=== PATIENT | male | born 1985 | race Caucasian/White ===

== ENCOUNTER 2020-05-08 18:39 | Emergency (ER) | payer BC, SELFPAY ==
[2020-05-08 19:02] LABS: Apearance,Urine Cloudy (Clear); Color,Urine Amber (Yellow); PH,Urine 6.5 (5.0-8.5)
[2020-05-08 19:03] VITALS: BP 143/95; PULSE 87; RESP 16; TEMP 36.7; O2SAT 98; BMI 38.7
[2020-05-08 19:03] LABS: Bilirubin,Urine 1+ (Negative); Blood, Urine 4+ (Negative); Glucose,Urine (UA) Negative (Negative); Ketones,Urine Negative (Negative); Protein,Urine 2+ (Negative); Specific Gravity, Urine >= 1.030 (1.005-1.030)
[2020-05-08 19:04] LABS: UTC Leukocyte Esterase,Urine Negative (Negative); UTC Nitrate,Urine Negative (Negative); Urobilinogen,Urine 1 EU/dl (0.2)
--- NOTE | 2020-05-08 19:10 | HMH.EDUTC ---
[facility] [place] Disposition Clinical Impression: Flank pain Disposition: Still a Patient Condition on Discharge: Good Instructions: DI for Acute Abdomen Referrals: Julio Oevrton [Primary Care Provider] - Time of Disposition: 19:22 Medical Decision Making - Garcia Inquiry Pt receiving controlled substance: No Garcia was queried for this patient: No Vital Signs: 05/08/20 19:03 Temperature 98.1 F Temperature Source Oral Pulse Rate [Right] 87 Respiratory Rate 16 Blood Pressure [Right Arm] 143/95 H Blood Pressure Mean [Right Arm] 111 Blood Pressure Source [Right Arm] Automatic Cuff Blood Pressure Position [Right Arm] Sitting 02 Sat by Pulse Oximetry 98 Oxygen Delivery Method Room Air - Lab Data Lab Results 05/08/20 19:01: Urine Color [place], Urine Appearance Cloudy, Urine pH 6.5, Ur Specific [place] >= 1.030, Urine Protein 2+, Urine Glucose (UA) Negative, Urine Ketones Negative, Urine Blood 4+, Urine Nitrate Negative, Urine Bilirubin 1+ A, Urine Urobilinogen 1, Ur Leukocyte Esterase Negative Medical Decision Narrative: Patient uncomfortable moving around on exam table Reports pain in right flank area that radiates around his right side into his abdomen and groin area States that pain has continued to get worse over the last hour, denies history of kidney stones Reports pain sudden onset with worsening Patient appears uncomfortable and reports tenderness in right side/abdomen when palpated, Urine collected and blood noted, Discussed with patient and recommended transfer to ED for further work up and evaluation and patient agreed, Called ED spoke with Jono and patient was transferred to Room 10 in ED for further treatment and evaluation [facility] [place] HPI - General Chief complaint: Abdominal Pain Stated complaint: R side and lower back Time Seen by Provider: 05/08/20 19:10 Mode of Arrival: Ambulatory Limitations: No Limitations Description of Symptoms (Recalled from Triage Doc. by RN): PT c/o right side pain that started approx hour ago. Advises the pain goes around from back and to the front HEENT Symptoms (Recalled from RN notes): No Resp Symptoms (Recalled from RN notes): No Skin Symptoms (Recalled from RN notes): No MS Symptoms (Recalled from RN notes): No Functional Status (Recalled from RN notes): na - History of Present Illness Provider Complaint: Patient states that he was at home and eat supper and started having sharp achy like pain in his right side that is radiating around his right side into his waistline/groin area States that he thought it would get better but has since got worse and more uncomfortable States that certain movements seem to help and some make the pain worse States that now pain is a 8/10 - Worker's Comp Is this a Worker's Comp case?: No [facility] History - Hepatitis A Screen Drug use history?: No High risk sexual behaviors?: No History of sexually transmitted infection?: No Currently employed?: No Childcare worker?: No Do you have indoor plumbing?: Yes Do you have electricity?: Yes Attestation statement:: This patient has been screened for Hepatitis A risk factors. I have reviewed the patient's past medical history: Yes ROS Obtained: Yes All systems reviewed & no additional complaints, Yes Systems reviewed as appropriate & no additional complaints - Constitutional Constitutional: Reports system reviewed and no additional complaints, except as docu - Eyes Eyes: Reports system reviewed and no additional complaints, except as docu - ENT Ears, Nose, Mouth, and Throat: Reports system reviewed and no additional complaints, except as docu - Cardiovascular Cardiovascular: Reports system reviewed and no additional complaints, except as docu - Respiratory Respiratory: Yes system reviewed and no additional complaints, except as docu - Gastrointestinal Comments: Pain in right flank area radiating around abdomen into right groin area - Genitourinary Male Genitourinary: Reports flank
--- NOTE | 2020-05-08 19:12 | CT_ITS ---
PROCEDURE: CT ABDOMEN PELVIS W CON CLINICAL INDICATION: abd pain Right flank pain and hematuria COMPARISON: No exams were available for comparison TECHNIQUE: IV Contrast: 75ML OPTIRAY 350 Oral Contrast None Axial images obtained with sagittal and coronal reformats. All CT scans at the facility use one or more dose reduction, viz: automated exposure control, ma/kV adjustment per patient size (including targeted exams where dose is matched to indication, i.e. head), or iterative reconstruction technique. FINDINGS: LOWER THORAX: No acute finding ABDOMEN & PELVIS: The stomach is filled with particular matter. The liver, gallbladder, adrenal glands, spleen, and pancreas have an unremarkable appearance. There is mild right hydronephrosis and hydroureter secondary to a 4 mm stone in the proximal right ureter at the L3 level. No evidence of appendicitis intestinal obstruction free air or diverticulitis. No acute bony findings. IMPRESSION: 4 mm stone in the proximal right ureter with mild right-sided obstructive uropathy. Dictated by: Jeff Kong MD 05/09/2020 05:16 Jeff Kong MD in [place] 05/09/2020 05:16
[2020-05-08 19:54] LABS: Basophils # 0.1 K/mm3 (0-0.2); Basophils % 0.5 % (0.1-2.0); Eosinophils # 0.2 K/mm3 (0.0-0.4); Eosinophils % 2.1 % (0.1-12.0); Hematocrit 43.7 % (42.0-52.0); Lymphocytes # 2.4 K/mm3 (0.7-4.5); Lymphocytes % 23.8 % (10-50); Mean Corpuscular HGB Conc 36.7 g/dL (31.8-35.4); Mean Corpuscular Hemoglobin 33.7 pg (27.0-31.2); Mean Corpuscular Volume 91.8 fl (80-94); Mean Platelet Volume 7.9 fl (7.4-10.4); Monocytes # 0.7 K/mm3 (0.1-1.0); Monocytes % 6.8 % (1.7-9.3); Neutrophils # 6.7 K/mm3 (1.8-7.8); Neutrophils % 66.8 % (37.0-80.0); Platelet Count 257 K/mm3 (142-424); Red Blood Count 4.76 M/mm3 (4.60-6.20); Red Cell Distribution Width 12.4 % (11.5-17.5)
[2020-05-08 19:59] LABS: Alanine Aminotransferase 27 U/L (12-78); Albumin Level 4.2 g/dl (3.5-5.0); Albumin/Globulin Ratio 1.2 (1.1-1.8); Alkaline Phosphatase 84 U/L (38-126); Amylase 63 U/L (30-110); Anion Gap 13.7 mEq/L (5-15); Aspartate Amino Transferase 35 U/L (17-59); Bilirubin,Total 0.6 mg/dl (0.2-1.3); Blood Urea Nitrogen 18 mg/dl (9-20); Calcium 9.3 mg/dl (8.4-10.2); Carbon Dioxide 30 mmol/L (22.0-30.0); Chloride 102 mmol/L (98-107); Creatinine Clearance Estimated 184 mL/min (50-200); Estimated Glomerular Filt Rate 87 ml/min (>60); GFR (African American) 105 ML/MIN (>60); Globulin 3.4 g/dL (1.3-3.2); Glucose 118 mg/dl (74-100); Lipase 35 U/L (23-300); Potassium 3.7 mmoL/L (3.5-5.1); Sodium 142 mmol/L (136-145); Total Protein,Serum 7.6 g/dl (6.3-8.2)
--- NOTE | 2020-05-08 20:03 | HMH.EDGENADL ---
ED Disposition Clinical Impression: Flank pain Disposition: Home, Self-Care Condition on Discharge: Good Instructions: DI for Acute Abdomen Additional Instructions: follow up w/ urology, use a strainer when you urinate. Prescriptions: Ketorolac Tromethamine [Toradol 10mg tablet] 10 mg PO Q6H 5 Days #20 tab Prescription Printed Referrals: Julio Overton [Primary Care Provider] - - Critical Care Critical Care Time: No Attestation: On 05/08/20, the high probability of a clinically significant, sudden or life threatening deterioration of the following system(s) required my full and direct attention, intervention and personal management. The time I documented below is in addition to time spent performing reported procedures but includes the following listed in this critical care notation. Medical Decision Making - Medical Records Medical records reviewed: Yes: I reviewed the patient's medical records. - Garcia Inquiry Pt receiving controlled substance: No Vital Signs: 05/08/20 19:03 05/08/20 20:26 Temperature 98.1 F Temperature Source Oral Pulse Rate [Right] 87 78 Respiratory Rate 16 18 Blood Pressure [Right Arm] 143/95 H 141/84 H Blood Pressure Mean [Right Arm] 111 103 Blood Pressure Source [Right Arm] Automatic Cuff Blood Pressure Position [Right Arm] Sitting 02 Sat by Pulse Oximetry 98 96 Oxygen Delivery Method Room Air Room Air - Lab Data Lab Results 05/08/20 19:01: Urine Color [place], Urine Appearance Cloudy, Urine pH 6.5, Ur Specific [place] >= 1.030, Urine Protein 2+, Urine Glucose (UA) Negative, Urine Ketones Negative, Urine Blood 4+, Urine Nitrate Negative, Urine Bilirubin 1+ A, Urine Urobilinogen 1, Ur Leukocyte Esterase Negative 05/08/20 19:25: WBC 10.0, RBC 4.76, Hgb 16.0, Hct 43.7, MCV 91.8, MCH 33.7 H, MCHC 36.7 H, RDW 12.4, Plt Count 257, MPV 7.9, Neut % (Auto) 66.8, Lymph % (Auto) 23.8, [place] % (Auto) 6.8, Eos % (Auto) 2.1, Baso % (Auto) 0.5, Neut # (Auto) 6.7, Lymph # (Auto) 2.4, [place] # (Auto) 0.7, Eos # (Auto) 0.2, Baso # (Auto) 0.1 05/08/20 19:25: Sodium 142, Potassium 3.7, Chloride 102, Carbon Dioxide 30, Anion Gap 13.7, BUN 18, Creatinine 1.00, Estimated Creat Clear 184, Estimated GFR 87, Est GFR ( Amer) 105, Glucose 118 H, Calcium 9.3, Total Bilirubin 0.6, AST 35, ALT 27, Alkaline Phosphatase 84, Total Protein 7.6, Albumin 4.2, Globulin 3.4 H, Albumin/Globulin Ratio 1.2, Amylase 63, Lipase 35 Result diagrams: 05/08/20 19:25 05/08/20 19:25 Orders (Tests/Meds): ED MEDICATIONS Generic Name Dose Route Start Last Admin Trade Name Freq PRN Reason Stop Dose Admin Sodium Chloride 1,000 mls @ 999 mls/hr 05/08/20 19:15 05/08/20 19:35 Sod Chlor 0.9% 1000ml Bag IV 05/08/20 20:15 999 mls/hr .Q1H1M STU Administration Discontinued Medications Generic Name Dose Route Start Last Admin Trade Name Freq PRN Reason Stop Dose Admin Ioversol 75 ml 05/08/20 19:52 05/08/20 19:52 Rad-Optiray 350 100ml Vial IV 05/08/20 19:53 75 ml ONCE ONE Administration Protocol Ketorolac Tromethamine 30 mg 05/08/20 19:13 05/08/20 19:35 Toradol 30mg/Ml Vial IV 05/08/20 19:14 30 mg ONCE ONE Administration Ondansetron HCl 4 mg 05/08/20 19:30 05/08/20 19:35 Zofran 4mg/2ml Vial IV 05/08/20 19:31 4 mg ONCE ONE Administration Sodium Chloride 10 ml 05/08/20 19:52 05/08/20 19:52 Rad-Saline Flush 10ml Syringe IV 05/08/20 19:53 10 ml ONCE ONE Administration ORDERS Category Date Time Status CT abdomen pelvis w con Stat Cat Scan 05/08/20 19:12 Taken Medical Decision Narrative: In summary patient presents for flank pain. Patient was seen in urgent care, transferred here for further work-up. On examination his right flank pain, radiating into his groin. Patient's urinalysis obtained at urgent care, demonstrating blood in urine, 4+. Due to this concern for nephrolithiasis is high. Patient had CT scan ordered on repeat assessment, pat
[2020-05-08 20:26] VITALS: BP 141/84; PULSE 78; RESP 18; O2SAT 96
[2020-05-08 20:51] VITALS: BP 138/78; PULSE 76; RESP 14; TEMP 36.7; O2SAT 99
== END 2020-05-08 20:53 | disposition home or self-care (01) ==
LOC: UTC 18:49 → ER 19:14
PROVIDERS: Nurse Practitioner; Emergency Provider Emergency Medicine; PCP Family Medicine
DX: R10.31 Right lower quadrant pain (principal); R10.11 Right upper quadrant pain
CPT/HCPCS: 74177; 80053; 81003; 82150; 83690; 85025; 96365; 96375; 99283; J2405; Q9967

== ENCOUNTER 2021-05-01 15:53 | Emergency (ER) | payer BC, SELFPAY ==
[2021-05-01 15:54] VITALS: BP 142/90; PULSE 90; RESP 18; TEMP 36.9; O2SAT 96; BMI 46.5
--- NOTE | 2021-05-01 16:51 | HMH.EDUTC ---
[facility] [place] Disposition Clinical Impression: Viral syndrome, Exposure to COVID-19 virus Disposition: Home, Self-Care Condition on Discharge: Good Instructions: DI for Viral Syndrome, Preventing the Spread of Coronavirus Discharge Instructions Additional Instructions: Drink plenty of fluids. Take tylenol for pain or fever. Return if you begin to have difficulty breathing. Follow up with your regular doctor. GO TO THE ER FOR ANY WORSENING SYMPTOMS Quarantine until you know the results of your covid-19 test. If it is positive, the health department should call you and give you further instructions about your length of Quarantine and other thing. Prescriptions: Brompheniramine/Pseudoephed/Dm [Bromfed Dm Cough Syrup] 5 ml PO Q6HP PRN #240 syrup PRN Reason: Cough Transmission Status: Received by [id number] Ibuprofen [Ibuprofen 800mg Tablet] 800 mg PO Q8HP PRN #30 tab PRN Reason: Moderate Pain Transmission Status: Received by [id number] Ondansetron [Zofran 4mg ODT] 4 mg PO Q8HP PRN #20 tab.rapdis PRN Reason: Nausea Transmission Status: Received by [id number] Referrals: Julio Overton [Primary Care Provider] - Forms: Work/School Release Time of Disposition: 17:02 Medical Decision Making - Medical Records Medical records reviewed: No: I reviewed the patient's medical records. - Garcia Inquiry Pt receiving controlled substance: No Vital Signs: 05/01/21 15:54 05/01/21 17:01 Temperature 98.4 F 98.4 F Temperature Source Oral Pulse Rate 90 Pulse Rate [Right] 90 Respiratory Rate 18 18 Blood Pressure 142/90 H Blood Pressure [Right Arm] 142/90 H Blood Pressure Mean [Right Arm] 107 02 Sat by Pulse Oximetry 96 - Lab Data Lab results reviewed: Yes: I reviewed the patient's lab results. Orders (Tests/Meds): ORDERS Category Date Time Status Covid-19 Nasal PCR ([facility]) Routine Lab 05/01/21 16:09 Received [facility] [place] HPI - General Stated complaint: covid test. FIORE [place] throat Time Seen by Provider: 05/01/21 16:51 Description of Symptoms (Recalled from Triage Doc. by RN): pt c/o sore throat and FIORE request Covid test HEENT Symptoms (Recalled from RN notes): Yes Resp Symptoms (Recalled from RN notes): Yes Skin Symptoms (Recalled from RN notes): No MS Symptoms (Recalled from RN notes): No Functional Status (Recalled from RN notes): na - History of Present Illness Provider Complaint: He c/o sore throat and head ache for the past 2 days. - Related Data Previous Rx's Medication Instructions Recorded Ketorolac Tromethamine [Toradol 10 mg PO Q6H 5 Days #20 tab 05/08/20 10mg tablet] Brompheniramine/Pseudoephed/Dm 5 ml PO Q6HP PRN #240 syrup 05/01/21 [Bromfed Dm Cough Syrup] Ibuprofen [Ibuprofen 800mg 800 mg PO Q8HP PRN #30 tab 05/01/21 Tablet] Ondansetron [Zofran 4mg ODT] 4 mg PO Q8HP PRN #20 tab.rapdis 05/01/21 Allergies Allergy/AdvReac Type Severity Reaction Status Date / Time No Known Allergies Allergy Verified 05/08/20 19:10 - Worker's Comp Is this a Worker's Comp case?: No [facility] History - Hepatitis A Screen Drug use history?: No High risk sexual behaviors?: No History of sexually transmitted infection?: No Currently employed?: No Childcare worker?: No Do you have indoor plumbing?: Yes Do you have electricity?: Yes Attestation statement:: This patient has been screened for Hepatitis A risk factors. I have reviewed the patient's past medical history: Yes ROS Obtained: Yes All systems reviewed & no additional complaints - Constitutional Constitutional: Reports chills, Denies fever(s), Reports poor appetite, Reports malaise - Eyes Eyes: Denies eye discharge - ENT Ears, Nose, Mouth, and Throat: Reports as per HPI - Cardiovascular Cardiovascular: Reports system reviewed and no additional complaints, except as docu, Denies chest pain - Respiratory Respiratory: Denies chest congestion, Reports coug
[2021-05-01 17:01] VITALS: BP 142/90; PULSE 90; RESP 18; TEMP 36.9; O2SAT 96
== END 2021-05-01 17:08 | disposition home or self-care (01) ==
PROVIDERS: Emergency Provider Nurse Practitioner Family; PCP Family Medicine
DX: B34.9 Viral infection, unspecified (principal); Z20.822 Contact with and (suspected) exposure to COVID-19
CPT/HCPCS: 99202; G0463; U0003

== ENCOUNTER 2023-08-30 11:57 | Emergency (ER) | payer BC, SELFPAY ==
[2023-08-30] VITALS (10 sets, daily range): BP systolic 132–153; BP diastolic 95–109; PULSE 91–109; RESP 18–20; TEMP 37; O2SAT 91–97; BMI 43.0
--- NOTE | 2023-08-30 12:25 | CT_ITS ---
FINAL REPORT TECHNIQUE: After the administration of intravenous contrast, axial images were obtained through the abdomen and pelvis by computed tomography. This study was performed with technique to keep radiation doses as low as reasonably achievable, (ALARA). Individualized dose reduction techniques using automated exposure control or adjustment of the MA and/or KV according to the patient's size were employed. CLINICAL HISTORY: bleeding from umbilicus, concern for fistula COMPARISON: 05/08/2020 FINDINGS: Abdomen: The lung bases are clear. The liver is moderately fatty infiltrated. Gallbladder is present. The spleen is unremarkable. The adrenals are normal. The pancreas is unremarkable. The kidneys enhance appropriately. Previously seen obstructing right renal stone is no longer identified. The aorta is normal in caliber. There is no free fluid or adenopathy. There is a new, fat-containing umbilical hernia. Pelvis: The appendix is not identified. The urinary bladder is incompletely distended. There is no free fluid or adenopathy. IMPRESSION: New, fat-containing umbilical hernia. Reviewed, Interpreted and Dictated by Vincent Ayers MD Transcribed by Susana Gale Authenticated and [facility]
[2023-08-30 13:43] LABS: Basophils % 0.3 % (0.1-2.0); Eosinophils # 0.2 K/mm3 (0.0-0.4); Hematocrit 47.1 % (42.0-52.0); Hemoglobin 16.8 g/dL (14.1-18.0); Lymphocytes # 2.7 K/mm3 (0.7-4.5); Lymphocytes % 28.1 % (10-50); Mean Corpuscular HGB Conc 35.6 g/dL (31.8-35.4); Mean Corpuscular Volume 89.9 fl (80-94); Mean Platelet Volume 7.2 fl (7.4-10.4); Monocytes # 0.6 K/mm3 (0.1-1.0); Monocytes % 6.1 % (1.7-9.3); Neutrophils % 63.5 % (37.0-80.0); Platelet Count 278 K/mm3 (142-424); Red Blood Count 5.24 M/mm3 (4.60-6.20); Red Cell Distribution Width 12.7 % (11.5-17.5); White Blood Count 9.4 K/mm3 (4.8-10.8)
--- NOTE | 2023-08-30 13:45 | HMH.EDGENADL ---
Discharge Plan Disposition Patient Disposition: Home, Self-Care Condition: Good Prescriptions Prescriptions: No Action No Known Home Medications Referrals Follow up/Referrals: Lane Goode MD [Staff Physician] - See instructions Julio Overton [Primary Care Provider] - See instructions Activity Restrictions/Add. Instructions Additional Instructions/Restrictions: You were evaluated in the emergency department today. At this time, you have a small fat-containing umbilical hernia. Please keep your bellybutton clean and dry. Keep a clean dressing on the area. Follow-up outpatient with Dr. Goode in general surgery clinic. Contact their clinic to make an appointment. Monitor for any signs of infection, such as redness, warmth, pus draining from the area, or other concerns. Return to the emergency department should you develop any of these issues or any worsening bleeding, inability to tolerate oral intake, or inability to have a bowel movement. Clinical Impressions Clinical Impression: Umbilical hernia Qualifiers: Obstruction and gangrene presence: without obstruction or gangrene Qualified Code(s): K42.9 - Umbilical hernia without obstruction or gangrene Stand Alone Forms Stand Alone Forms: Work/School Release Instructions Patient Instructions: DI for Ventral Hernia Discharge ED Provider: Som Beckman General Adult HPI General Chief complaint: Skin/Abscess/Foreign Body Stated complaint: bleeding through belly button Time Seen by Provider: 08/30/23 12:02 Mode of Arrival: Ambulatory Source of Information: Patient Limitations: No Limitations Description of Symptoms (Recalled from ER Triage Doc. by RN): PT REPORTS BLEEDING FROM HIS BELLY BUTTON THAT STARTED YESTERDAY, STATES IT WAS SCANT YESTERDAY AND TODAY IT JUST STARTED POURING BLOOD SOAKING HIS SHIRT, BLEEDING IS CONTROLLED AT THIS TIME, PT STATES HE NOTICED SOME BULGING 3-4 WEEKS AGO AND THINKS HE MAY HAVE A HERNIA History of Present Illness HPI narrative: This patient is a 38-year-old male with a history of obesity presenting to the emergency department for evaluation with concern for bleeding from his bellybutton. Patient reports that he first noticed that he thought he had an umbilical hernia approximately 3 weeks ago. He states it typically is below but is very deep, however he notes it was bulging outward over the last several weeks. He also had pain there. He did not think much of it, but then yesterday he started having a small amount of blood coming from his bellybutton. He tried to clean it, as he thought maybe was infected, however today it has been bleeding much more. He also notes that it seems like his bellybutton is more shallow and is protruding more. He denies any other concerns or complaints, such as fevers, chills, nausea, vomiting, changes in oral intake, changes bowel movements, constipation, or other concerns. He denies any prior abdominal surgeries. Related Data Home Medications Medication Instructions Recorded Confirmed No Known Home Medications 08/30/23 08/30/23 Allergies Allergy/AdvReac Type Severity Reaction Status Date / Time No Known Allergies Allergy Verified 08/30/23 12:18 [facility] Disclaimer: The information contained in this section may have been updated after the patient was seen, as this information can be updated by other users. Social History Smoking Status: Current every day smoker alcohol intake: current current occupational status: employed Travel in the last 8 weeks: None ROS Obtained: Yes All systems reviewed & no additional complaints except as documented Physical Exam General General appearance: alert, in no apparent distress and obese Head Head exam: atraumatic and normocephalic Eye Eye exam: Present normal appearance, PERRL and EOMI ENT ENT exam: Present normal exam, normal oropharynx, mucous membranes moist and nor
[2023-08-30 13:53] LABS: Chloride 105 mmol/L (98-107); Potassium 4.1 mmoL/L (3.5-5.1); Sodium 141 mmol/L (136-145)
[2023-08-30 13:55] LABS: Blood Urea Nitrogen 15 mg/dl (9-20); Creatinine Clearance Estimated 117 mL/min (50-200); Estimated Glomerular Filt Rate 95 ml/min (>60); GFR (African American) 116 ML/MIN (>60)
[2023-08-30 13:56] LABS: Alanine Aminotransferase 42 U/L (12-78); Albumin Level 4.4 g/dl (3.5-5.0); Albumin/Globulin Ratio 1.2 (1.1-1.8); Alkaline Phosphatase 94 U/L (38-126); Anion Gap 13.1 mEq/L (5-15); Aspartate Amino Transferase 39 U/L (17-59); Bilirubin,Total 0.5 mg/dl (0.2-1.3); Calcium 8.7 mg/dl (8.4-10.2); Carbon Dioxide 27 mmol/L (22.0-30.0); Globulin 3.6 g/dL (1.3-3.2); Glucose 95 mg/dl (74-100)
[2023-08-30 14:38] LABS: Lactic Acid 0.9 mmol/L (0.7-2.1)
--- NOTE | 2023-08-30 15:33 | PC.NURSE ---
paged surgery again
--- NOTE | 2023-08-30 15:34 | PC.NURSE ---
Dr. Ritter speaking with Dr. Goode
== END 2023-08-30 16:02 | disposition home or self-care (01) ==
PROVIDERS: Emergency Medicine; Emergency Provider Emergency Medicine; PCP Family Medicine
DX: K42.9 Umbilical hernia without obstruction or gangrene (principal); F17.200 Nicotine dependence, unspecified, uncomplicated
CPT/HCPCS: 74177; 80053; 83605; 85025; 99285

== ENCOUNTER 2023-09-16 13:59 | Outpatient (CLI) | payer BC, SELFPAY ==
[2023-09-16 14:45] LABS: Basophils # 0.1 K/mm3 (0-0.2); Basophils % 0.6 % (0.1-2.0); Eosinophils # 0.1 K/mm3 (0.0-0.4); Eosinophils % 1.4 % (0.1-12.0); Hematocrit 46.4 % (42.0-52.0); Hemoglobin 15.8 g/dL (14.1-18.0); Lymphocytes # 3.1 K/mm3 (0.7-4.5); Lymphocytes % 32.2 % (10-50); Mean Corpuscular Hemoglobin 31.5 pg (27.0-31.2); Mean Corpuscular Volume 92.8 fl (80-94); Mean Platelet Volume 8.2 fl (7.4-10.4); Monocytes # 0.7 K/mm3 (0.1-1.0); Monocytes % 7.7 % (1.7-9.3); Neutrophils # 5.6 K/mm3 (1.8-7.8); Platelet Count 268 K/mm3 (142-424); White Blood Count 9.6 K/mm3 (4.8-10.8)
[2023-09-16 15:05] LABS: Chloride 105 mmol/L (98-107); Potassium 4.3 mmoL/L (3.5-5.1); Sodium 141 mmol/L (136-145)
[2023-09-16 15:08] LABS: Anion Gap 15.3 mEq/L (5-15); Blood Urea Nitrogen 20 mg/dl (9-20); Calcium 8.6 mg/dl (8.4-10.2); Carbon Dioxide 25 mmol/L (22.0-30.0); Estimated Glomerular Filt Rate 109 ml/min (>60); GFR (African American) 132 ML/MIN (>60); Glucose 84 mg/dl (74-100)
== END 2023-09-16 23:59 ==
LOC: LAB 14:00
PROVIDERS: Visit Provider Surgery
DX: K42.9 Umbilical hernia without obstruction or gangrene (principal)
CPT/HCPCS: 80048; 85025

== ENCOUNTER 2023-10-11 06:01 | Day surgery (SDC) | payer BC, SELFPAY ==
[2023-10-05 10:23] VITALS: BMI 43.0
--- NOTE | 2023-10-08 10:08 | SUR.PREOP ---
Verified w/ pt that he is able to come in at 0600, states he can. Provided pt w/ info on arrival time and schedule change.
[2023-10-11] VITALS (15 sets, daily range): BP systolic 94–149; BP diastolic 51–112; PULSE 41–94; RESP 12–18; TEMP 36.3–36.7; O2SAT 93–99
[2023-10-11] MEDS: LACTATED RINGERS 1000ML 1,000 ML 25 ML IV (06:19)
--- NOTE | 2023-10-11 06:34 | ECG_ITS ---
APPROVED REPORT Exam: Resting ECG HR:87 bpm ECG Measurements Heart Rate 87 AXES OR 163 P 52 QRSd 109 QRS 46 QT 358 T -3 QTc 403 Conclusion SINUS RHYTHM Isolated Q-wave in III ABNORMAL ECG UNCONFIRMED REPORT Electronically signed by : Connor Judd MD 10/12/2023 16:42:56
[2023-10-11] MEDS: CEFAZOLIN SODIUM 2 GM in 0.9 % SODIUM CHLORIDE 100 ML IV (07:35)
[2023-10-11] MEDS: ROPIVACAINE 0.5% 30ML VIAL 150 MG (07:45)
[2023-10-11] MEDS: LIDOCAINE 1% 10ML MDV 10 ML (07:54)
--- NOTE | 2023-10-11 08:14 | P.PNANES_ITS ---
[facility] Disclaimer: The information contained in this section may have been updated after the patient was seen, as this information can be updated by other users. Medical History No significant past medical history Surgical History No significant past surgical history Family History Other Family history of diabetes mellitus type II Family history of hypertension Social History Smoking Status: Current every day smoker alcohol intake: current substance use type: denies use current occupational status: employed Travel in the last 8 weeks: None [facility] Anesthesia Checklist Patient Identification Patient Identification: Verbal (Name & ) Structural Data Admitted From: Home Planned Operative Procedure/s: hernia repair Consent for Planned Operative Procedure(s) Verified: Yes NPO Status Verified Time NPO: 00:00 Additional verifications Anesthesia Reactions: No Hx Blood Transfusions: No Blood Transfusion Reaction: No Airway Assessment Mallampati Score:: Class II C-Spine Mobility Assessed: Yes TMJ Mobility Assessed: Yes Dentition: Good Dentition Neurological Assessment Level of Consciousness: Awake, Alert and Appropriate Anesthesia Plan Anesthesia Risk discussed: Yes Anesthesia Plan: Verified ASA Class: II Anesthesia Type: General
--- NOTE | 2023-10-11 09:31 | EXP.OP.NOTE ---
Date of procedure: 10/11/23 Pre-op Diagnosis:: Umbilical hernia Post-op Diagnosis:: Same Procedure performed:: Laparoscopically directed open umbilical hernia repair with placement of large size Bard Ventralex mesh (diagnostic laparoscopy with open umbilical hernia repair) Surgeon:: Lane Goode MD Anesthesia: AISLINN Estimated blood loss (mL): 15 Clinical Note:: Patient is a 38-year-old male who presents for repair of his umbilical hernia. He has a BMI of 46. I had seen the patient in consultation after he presented to the emergency department on 09/02/2023. He recently had noticed more prominence and protrusion deep within his umbilical area without pain. On 08/29/2023 he had developed some bleeding from the umbilical area which was initially scant but then the following day he had blood staining his shirt. In the emergency department he underwent CT scan of the abdomen and pelvis which reveals new, fat-containing umbilical hernia. He was seen as a surgical consultation and inspection of the umbilical area revealed deep in the umbilicus mildly protruding reactive reddish skin with excoriation centrally consistent with hernia with excoriated skin resulting in bleeding. I reviewed his CT scan and he was found to have a 1 point centimeter fascial defect with prominent hernia sac likely containing omentum which was causing some excoriation and erosion of the skin with bleeding. I informed him that there is no surgical emergency but recommended local wound care using topical antibiotic ointment and gauze. He followed up in the office at this time stating that the bleeding has resolved. The options were discussed with the patient. Given his clinical scenario it was felt that he would best be served with laparoscopically directed open repair. Operative findings:: Patient had a rather small defect measuring just over 1 cm with a prominent hernia sac and significant mount of chronically incarcerated omentum. Hernia sac was extremely densely adherent to the umbilical subdermis and there was essentially no plane between the 2 tissues creating almost a fistula between the umbilical skin and hernia sac. Operative note:: Patient was taken to the operating room. He was positioned in supine position. Anesthesia was induced via endotracheal tube. Abdomen was prepped and draped in the standard surgical fashion. 5 mm incision was made the left subcostal region and an optical trocar was carefully inserted into the peritoneal cavity. CO2 pneumoperitoneum was achieved to 15 mmHg. Surveillance was carried out and there appeared to be a relatively small hernia with omentum. 5 mm trocar was inserted in the left lower abdomen. With traction placed on the herniated omentum it was carefully and slowly reduced with use of abdominal pressure in the umbilical area as well. Herniated omentum appeared to be chronically incarcerated but not strangulated. It was reduced into the peritoneal cavity. Given the prominence of hernia sac despite the small defect plan was made for open placement of Ventralex mesh. Subumbilical skin incision was made. Dissection was carried down through subcutaneous tissues. Hernia sac was encountered. Very prolonged meticulous dissection was carried out in an attempt to dissect the hernia sac free from the umbilical subdermis. There appeared to be no clear plane between the hernia sac and umbilical subdermis. There was unavoidable small laceration of the full-thickness of the umbilical skin deep within the umbilicus. Ultimately hernia sac was able to be dissected free and extraneous peritoneum tissue was excised down to the fascia and sent as hernia sac. Large sized Bard Ventralex mesh was inserted through the defect. Briefly laparoscopic CO2 pneumoperitoneum was reestablished to ensure that the mesh was in a good position overlying the defect. Pneumoperitoneum was evacuated once again. The tails of the mesh were sutured superiorly and inferiorly to the fascia with 2-0 Prolene sutures. The Prolene tails were then cut flush with the fascia. The umbilical skin defect was closed with a 4-0 plain gut. Local anesthetic was infiltrated. Umbilical subdermis was closed with several interrupted 2-0 Vicryl. CO2 pneumoperitoneum was then reestablished. Mesh appeared to be in good position. It was secured in its periphery using the absorbable OPTi fix device. CO2 pneumoperitoneum was then reevacuated. Skin incisions were closed with 4-0 Monocryl in a subcuticular fashion. Antibiotic ointment was placed within the umbilicus. Dermabond and clean dry sterile dressings were applied. Condition: stable Disposition: PACU Complications:: None immediately apparent
--- NOTE | 2023-10-11 09:46 | P.PNANES_ITS ---
[facility] Anesthesia Record Part I Anesthesia Record I Intake, IV Amount: 900 Hydration: Adequate Estimated blood loss (mL): 25 Urine output (mL): 0 Blood Products used (#): none Blood Pressure: 135/98 SaO2: 94 Pulse Rate: 93 Airway Patency: Patent Respiratory Rate: 18 Temperature: 97.9 F Patient is:: Awake (Talking) and Stable Stable to PACU at:: 09:44
--- NOTE | 2023-10-11 10:55 | SUR.PREOP ---
1030- educating patient and . Patient stated he didn't feel right. Said maybe nauseous, HR dropping, flushed, clammy, lips bluish. BP would not take, positioned patient in supine, pt lethargic. 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 Stated he felt better. Color has improved. 1100- 105/63, 82HR, SAT 94% RA- DECK ENGINE OPERATOR instructed to keep pt a little longer. Tash RN, Carito RN, Thiago RN at BS
--- NOTE | 2023-10-12 07:26 | EXP.ANES.II ---
[facility] Anesthesia Record Part II Anesthesia Record Part II Discharge Time: 10:09 Destination: Surgical Day Care (OP Surgery) PACU nurse assessment reviewed?: Yes Patient Condition:: Good Anesthesia Complications:: None Swallowing reflex intact?: Yes Airway Patency: Patent Cyanosis?: No Blood Pressure: 132/66 SaO2: 96 Respiratory Rate: 16 Pulse Rate: 89 Temperature: 97.3 F Mental Status: Alert & Oriented Pain level:: 0 Nausea and/or vomitting:: None Intake, IV Amount: 0 Hydration: Adequate
[2023-10-12 07:27] VITALS: BP 132/66; PULSE 89; RESP 16; TEMP 36.3; O2SAT 96
== END 2023-10-11 11:30 | disposition home or self-care (01) ==
PROVIDERS: PCP Family Medicine; Visit Provider Surgery
PROC: (CPT 49592; principal; 2023-10-11 07:30)
DX: K42.9 Umbilical hernia without obstruction or gangrene (principal)
CPT/HCPCS: 49592; 93005; 96374; J3490; C1781; J2405

== ENCOUNTER 2024-09-10 14:26 | Emergency (ER) | payer OTHER, SELFPAY ==
--- NOTE | 2024-09-10 16:11 | ED_ITS ---
Discharge Plan Disposition Patient Disposition: Home, Self-Care Condition: Good Prescriptions Prescriptions: New azithromycin [Zithromax] 250 mg tablet 250 mg PO UD DOSE PK Qty: 6 0RF Rx Instructions: Take two (2) tablets today, then one (1) tablet days #2 thru #5 methylprednisolone 4 mg Tablets,Dose Pack 4 mg PO DIRECTED 6 Days Qty: 21 0RF Rx Instructions: Take 1 pack as directed for 6 days [id number]-[id number]-[id number] [Bromfed DM] 2-30-10 mg/5 mL Syrup 5 ml PO Q6H PRN (Reason: Cough) Qty: 240 0RF Referrals Follow up/Referrals: Julio Overton [Primary Care Provider] - See instructions Activity Restrictions/Add. Instructions Additional Instructions/Restrictions: Drink plenty of fluids. Take tylenol or ibuprofen for pain or fever. Take the medications as directed. Follow up with your regular doctor. GO TO THE ER FOR ANY WORSENING SYMPTOMS Clinical Impressions Clinical Impression: Sinusitis, Otitis media Instructions Patient Instructions: Sinusitis, DI for Sinusitis Print Language Print Language: [place] Discharge ED Provider: Dany Medina [facility] [place] General Stated complaint: st congestion cough left ear pain Time Seen by Provider: 09/10/24 16:11 Related Data Previous Rx's ?Medication ?Instructions ?Recorded azithromycin 250 mg tablet 250 mg PO UD DOSE PK #6 tabs 09/10/24 (Zithromax) [id number]-holrpvcjvnckyoo-[id number] 5 ml PO Q6H PRN Cough #240 mL 09/10/24 2 mg-30 mg-10 mg/5 mL oral syrup (Bromfed DM) methylprednisolone 4 mg tablets in 4 mg PO DIRECTED 6 days #21 tabs 09/10/24 a dose pack Allergies Allergy/AdvReac Type Severity Reaction Status Date / Time No Known Allergies Allergy Verified 11/18/23 09:02 [facility] Disclaimer: The information contained in this section may have been updated after the patient was seen, as this information can be updated by other users. Medical History No significant past medical history Surgical History History of umbilical hernia repair Family History Other Family history of diabetes mellitus type II Family history of hypertension Social History Smoking Status: Current every day smoker alcohol intake: current substance use type: denies use current occupational status: employed Travel in the last 8 weeks: None Have you lived/traveled outside [place] in past 30 days?: No Contact w/someone who lives/traveled outside [place] past 30 days?: No Exposure to someone with infectious disease in past 14 days?: No Do you have a fever (greater than 100.4 F or 38 C)?: No Have you tested positive for COVID-19: No Exposed to someone with COVID-19 in past 14 days?: No Do you have a sore throat?: Yes Do you have a cough?: Yes Do you have any weakness?: No Do you have any diarrhea?: No Are you experiencing any unusual bleeding?: No Do you have any muscle aches/pain?: No Do you have any abdominal pain?: No Are you experiencing loss of taste or smell?: No ROS Obtained: Yes All systems reviewed & no additional complaints except as documented Constitutional Constitutional: Denies chills, Reports fever(s) and Reports poor appetite Eyes Eyes: Denies eye discharge ENT Ears, Nose, Mouth, and Throat: Denies ear discharge, Reports otalgia, Denies hearing loss, Denies sinus pain and Reports sore throat Cardiovascular Cardiovascular: Denies chest pain and Denies dyspnea Respiratory Respiratory: Denies chest congestion, Reports cough and Denies dyspnea Gastrointestinal Gastrointestingal: Denies abdominal pain, diarrhea, nausea or vomiting Musculoskeletal Musculoskeletal: Denies arthralgias Integumentary/Breasts Skin/Breast: Denies rash Physical Exam General General appearance: alert and in no apparent distress Head Head exam: atraumatic, normocephalic and normal inspection Eye Eye exam: Present normal appearance; Absent PERRL or EOMI ENT ENT exam: Present mucous membranes moist and normal external ear exam Expanded ENT Exam TM/Canal exam: Bilateral TM: erythema, bulging and effusion Nose exam: Absent sinus tenderness Nasal speculum exam: Bilateral: normal Mouth exam: Present normal external inspection and other; Absent drooling Teeth exam: Present normal inspection Throat exam: Present tonsillar erythema and tonsillomegaly Neck Neck exam: Present normal inspection, full ROM and trachea midline; Absent tenderness, meningismus or lymphadenopathy Chest Chest inspection: Present normal inspection and symmetric chest wall rise; Absent tenderness Respiratory Respiratory exam: Present normal lung sounds bilaterally; Absent respiratory distress, wheezes or stridor Cardiovascular Cardiovascular exam: Present regular rate, normal rhythm and normal heart sound s; Absent tachycardia or irregular rhythm Abdominal Exam Abdominal exam: Present soft and normal bowel sounds; Absent distention, tenderness, guarding, rebound or rigidity Extremities Exam Extremities exam: Present normal inspection and normal capillary refill; Absent tenderness, joint swelling or calf tenderness Back Exam Back exam: Present normal inspection and full ROM; Absent tenderness, CVA tenderness (R) or CVA tenderness (L) Neurological Exam Neurological exam: Present alert, oriented X3, CN II-XII intact, normal gait and reflexes normal; Absent motor sensory deficit Psychiatric Psychiatric exam: Present normal affect and normal mood Skin Skin exam: Present warm, dry, intact and normal color Lymphatic Lymphatic Findings: no adenopathy Medical Decision Making Medical Records Medical records reviewed: No I reviewed the patient's medical records. Screening: Per USPSTF and CDC recommendations, given the prevalence of disease in our region, it is our hospital?s policy to screen for HIV and viral Hepatitis for all patients aged 18 and over and those with ongoing risk factors. Garcia Inquiry Pt receiving controlled substance: No
[2024-09-10 16:16] VITALS: BP 137/78; PULSE 90; RESP 18; TEMP 36.9; O2SAT 97; BMI 39.6
[2024-09-10 16:22] LABS: UTC Strep Screen (Rapid) Negative (Negative)
[2024-09-10 17:22] VITALS: BP 137/78; PULSE 90; RESP 18; TEMP 36.9
== END 2024-09-10 17:22 | disposition home or self-care (01) ==
PROVIDERS: Emergency Provider Nurse Practitioner Family; PCP Family Medicine
DX: J32.9 Chronic sinusitis, unspecified (principal); H66.92 Otitis media, unspecified, left ear; R50.9 Fever, unspecified; J02.9 Acute pharyngitis, unspecified; R09.81 Nasal congestion; R05.9 Cough, unspecified; R63.8 Other symptoms and signs concerning food and fluid intake; H92.02 Otalgia, left ear
CPT/HCPCS: 87880; 99212; G0381